=== PATIENT | male | born 1965 | race Caucasian/White ===

== ENCOUNTER 2019-11-13 13:59 | Emergency (ER) | payer MEDICARE, MEDICAID ==
[~2019-11-13] VITALS: Ht 180.3 cm; Wt 87.3 kg
[2019-11-13] MEDS ORDERED: METOCLOPRAMIDE INJ 10MG/2ML VIAL (J2765) IV ONE ×2 (14:15→19:45)
[2019-11-13] MEDS ORDERED: NS 1,000 ML IV ONE (14:15)
[2019-11-13] MEDS ORDERED: MORPHINE 4 MG/ML 1ML VIAL/SYRINGE (J2270) As Ordered ONE (14:50)
[2019-11-13] MEDS: MORPHINE 4 MG/ML 1ML VIAL/SYRINGE (J2270) IV PRN ×2 (14:52→16:01)
[2019-11-13 15:07] LABS: BASO # 0.1 10^3/uL (0.0-0.2); BASO % 0.7 % (0.0-1.0); EOS # 0.1 10^3/uL (0.0-0.5); EOS % 0.4 % (0.0-3.0); HEMATOCRIT 47.4 % (42.0-52.0); HEMOGLOBIN 15.5 g/dl (13.5-17.5); LYMPH # 1.6 10^3/uL (1.5-5.0); LYMPH % 11.8 % (24.0-44.0); MEAN CORPUSCULAR HEMOGLOBIN 26.6 pg (27.0-33.0); MEAN CORPUSCULAR HGB CONC 32.7 g/dl (32.0-36.5); MEAN CORPUSCULAR VOLUME 81.4 fl (80.0-96.0); MONO # 0.6 10^3/uL (0.0-0.8); MONO % 4.8 % (0.0-5.0); NEUTROPHILS # 10.8 10^3/uL (1.5-8.5); NEUTROPHILS % 81.1 % (36.0-66.0); PLATELET COUNT, AUTOMATED 284 10^3/uL (150-450); RED BLOOD COUNT 5.82 10^6/uL (4.30-6.10); WHITE BLOOD COUNT 13.3 10^3/uL (4.0-10.0)
[2019-11-13] MEDS ORDERED: HYDR1TAB33 PO (15:08)
[2019-11-13] MEDS ORDERED: LISI10TA4 PO (15:08)
[2019-11-13] MEDS ORDERED: VITA50005 PO (15:08)
[2019-11-13] MEDS ORDERED: GLIP5TAB8 PO (15:08)
[2019-11-13] MEDS ORDERED: JANU100T PO (15:08)
[2019-11-13] MEDS ORDERED: MM S100C PO (15:08)
[2019-11-13] MEDS ORDERED: SENN1TAB8 PO (15:08)
[2019-11-13] MEDS ORDERED: FAMO20TA PO (15:08)
[2019-11-13] MEDS ORDERED: ESOM1CAP5 PO (15:08)
[2019-11-13] MEDS ORDERED: TRES1INJ2 SC (15:08)
[2019-11-13] MEDS ORDERED: SIMV10TA21 PO (15:08)
[2019-11-13] MEDS ORDERED: PROM25TA12 PO (15:08)
[2019-11-13] MEDS: GASTROGRAFIN SOLUTION 30ML PO SCH ×2 (15:30→16:00)
[2019-11-13 15:43] LABS: ALBUMIN 3.7 GM/DL (3.2-5.2); ALT/SGPT 14 U/L (12-78); AMYLASE 25 U/L (25-115); BILIRUBIN,DIRECT < 0.1 MG/DL (0.0-0.2); BILIRUBIN,TOTAL 0.3 MG/DL (0.2-1.0); CK-MB VALUE MASS 1.4 NG/ML (<3.6); CPK CREATINE PHOSPHOKINASE 73 U/L (39-308); LIPASE 84 U/L (73-393); MB/CK RELATIVE INDEX 1.92 (< OR =4); TOTAL PROTEIN 7.2 GM/DL (6.4-8.2); TROPONIN I < 0.02 NG/ML (< 0.10)
[2019-11-13] MEDS ORDERED: ONDANSETRON 4MG/2ML VIAL (J2405) IV ONE (15:45)
[2019-11-13] MEDS ORDERED: PROMETHAZINE INJ 25 MG/ML VIAL (J2550) IV ONE (17:30)
--- NOTE | 2019-11-13 18:44 | REP ---
CT ABDOMEN AND PELVIS WITHOUT CONTRAST: CT abdomen and pelvis was performed without oral or IV contrast. Sagittal and coronal reconstruction images are performed. Visualized lung bases demonstrate no infiltrate. The liver, gallbladder, spleen, adrenals, and pancreas are grossly unremarkable except for a tiny calcified granuloma in the spleen and mild liver capsule calcifications. The appears to be a small cyst in each kidney without evidence of hydroureteronephrosis or nephrolithiasis. The abdominal aorta is normal in caliber with mild atherosclerotic calcifications. I see no adenopathy, free air or free fluid. No bowel wall thickening is seen. There is no evidence of appendicitis. There is diastasis of the rectus muscles anteriorly with a small anterior abdominal hernia to the right of midline containing a nonobstructing small bowel loops, at the level of the pelvic brim. There is sigmoid diverticulosis without acute diverticulitis. No pelvic mass is seen. Urinary bladder is mildly distended and grossly unremarkable. There is a small right inguinal hernia containing fat. IMPRESSION: No acute abnormalities. No evidence of small bowel obstruction. No free air or free fluid. Diastasis of the rectus muscles with a small anterior abdominal wall hernia to the right of midline at the level of the pelvic brim. This contains a non-obstructed small bowel loop. There is mild sigmoid diverticulosis without acute diverticulitis. No acute finding detected. Electronically Signed by Reji Link MD 11/14/2019 03:58 P
[2019-11-13] MEDS ORDERED: GI COCKTAIL 50ML BTL(HYOSCYAMINE/MAALOX/LIDOCAINE VISCOUS)(1:3:1) PO ONE (19:30)
[2019-11-13] MEDS ORDERED: REGL10TA6 PO (20:41)
[2019-11-13 20:55] VITALS: BP 119/75
--- NOTE | 2019-11-14 22:00 | ECGEPIP ---
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
== END 2019-11-13 21:39 | disposition home or self-care (01) ==
LOC: M ED 13:59
DX: E11.43 Type 2 diabetes mellitus with diabetic autonomic (poly)neuropathy (principal); R11.2 Nausea with vomiting, unspecified; I45.19 Other right bundle-branch block; Z87.19 Personal history of other diseases of the digestive system; Z79.4 Long term (current) use of insulin; Z79.899 Other long term (current) drug therapy
CPT/HCPCS: 36415; 74176; 80047; 80076; 82150; 82550; 82553; 83605; 83690; 84484; 85025; 93005; 93041; 94760; 96374; 96375; 96376; 99285; J2270; J2405; J2765